=== PATIENT | male | born 1975 | race African-American/Black ===

== ENCOUNTER 2017-03-27 13:29 | Emergency (ER) | payer OTHER ==
[~2017-03-27] VITALS: Ht 175.3 cm; Wt 86.0 kg
[~2017-03-27 13:29] MED LIST: Z.0.NO CURRENT MEDS
[2017-03-27 13:32] VITALS: BP 122/74; PULSE 70; RESP 20; TEMP 98.5; O2SAT 98
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
[2017-03-27] MEDS ORDERED: IBUP400T20 PO (15:00)
[2017-03-27] MEDS ORDERED: HYDR-3533 PO (15:00)
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
[2017-03-27 15:15] VITALS: BP 124/81; TEMP 98.2
[2017-03-27] MEDS ORDERED: oxyCODONE/ACETAMINOPHEN 5 MG/325 MG TAB PO ONE (15:15)
[2017-03-27] MEDS ORDERED: KETOROLAC TROMETHAMINE 60 MG/2 ML (IM) VIAL IM ONE (15:15)
== END 2017-03-27 15:15 | disposition home or self-care (01) ==
LOC: NEPD 13:29
DX: S39.92XA Unspecified injury of lower back, initial encounter (principal); W20.8XXA Other cause of strike by thrown, projected or falling object, initial encounter; Y99.0 Civilian activity done for income or pay; F17.210 Nicotine dependence, cigarettes, uncomplicated
CPT/HCPCS: 96372; 99283; J1885

== ENCOUNTER 2017-03-28 22:32 | Emergency (ER) | payer OTHER ==
[~2017-03-28] VITALS: Ht 175.3 cm; Wt 86.0 kg
[~2017-03-28 22:32] MED LIST changes: +HYDR-3533 PO; +IBUP400T20 PO; -Z.0.NO CURRENT MEDS
[2017-03-28 22:35] VITALS: BP 131/77; PULSE 78; RESP 14; TEMP 99.3; O2SAT 99
[2017-03-29] VITALS: BP 140/77
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
[2017-03-29 00:41] LABS: BICARBONATE 27.8 MEQ/L (21.0-32.0); POTASSIUM 4.2 MEQ/L (3.5-5.1)
[2017-03-29] MEDS ORDERED: IOHEXOL 350 MG/ML 10 ML VIAL (for RAD DIAG) IV ONE (00:58)
[2017-03-29] MEDS ORDERED: SODIUM CHLOR 0.9% 1000 ML INJ 1,000 ML IV ONE (01:00)
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
[2017-03-29] MEDS ORDERED: DICL50TA PO (01:26)
[2017-03-29] MEDS ORDERED: CYCL7.5T33 PO (01:26)
== END 2017-03-29 02:30 | disposition home or self-care (01) ==
LOC: NEPE 22:32
DX: S32.029A Unspecified fracture of second lumbar vertebra, initial encounter for closed fracture (principal); S32.039A Unspecified fracture of third lumbar vertebra, initial encounter for closed fracture; W19.XXXA Unspecified fall, initial encounter; Y93.9 Activity, unspecified; Y92.9 Unspecified place or not applicable; Y99.8 Other external cause status
CPT/HCPCS: 72100; 72170; 74177; 80048; 99284; J7030; Q9967